=== PATIENT | female | born 1945 | race Caucasian/White ===

== ENCOUNTER 2017-03-22 09:22 | Day surgery (SDC) | payer BC ==
--- NOTE | ~2017-03-22 | EGD ---
EGD REPORT [facility] [address] [address] NAME: MANJEET BASURTO : [birth year] STATUS : REG [facility]#: [id number] AGE: 71 ADM/REG DATE : 03/22/17 MR#: [id number] REPORT SERV DATE: 03/22/17 DICTATED BY: MARCOS DANEIL DATE: 03/22/17 REPORT STATUS : Draft TRANSCRIBED BY: [facility] DATE: 03/22/17 Endoscopy Center Patient Name: Manjeet Basurto Date of : 1945 Attending MD: MARCOS DANIEL MD Procedure Date No Time: 03/22/2017 Procedure: Upper GI endoscopy Indications: Epigastric abdominal pain, Heartburn, Suspected esophageal reflux, Nausea with vomiting Referring MD: Elisa Gonzalez Medicines: as per anesthesia Complications: No immediate complications. Procedure: Pre-Anesthesia Assessment: - ASA Grade Assessment: II - A patient with mild systemic disease. After obtaining informed consent, the endoscope was passed under direct vision. Throughout the procedure, the patient's blood pressure, pulse, and oxygen saturations were monitored continuously. The GIF [id number] was introduced through the mouth, and advanced to the third part of duodenum. The upper GI endoscopy was accomplished without difficulty. The patient tolerated the procedure. Findings: The examined esophagus was normal. A small hiatus hernia was present. Localized mild inflammation characterized by erythema was found in the gastric antrum. Biopsies were taken with a cold forceps for histology. The examined duodenum was normal. Impression: - Normal esophagus. - Hiatus hernia. - Gastritis. Biopsied. - Normal examined duodenum. Recommendation: - Await pathology results. - Follow an antireflux regimen. - Continue present medications. Procedure Code(s): --- Professional --- 39066, Esophagogastroduodenoscopy, flexible, transoral; with biopsy, single or multiple Diagnosis Code(s): --- Professional --- EGD REPORT [facility] [address] [place]. [address] NAME: MANJEET BASURTO : [birth year] STATUS : REG [facility]#: [id number] AGE: 71 ADM/REG DATE : 03/22/17 MR#: [id number] REPORT SERV DATE: 03/22/17 DICTATED BY: MARCOS DANIEL DATE: 03/22/17 REPORT STATUS : Draft TRANSCRIBED BY: [employer] DATE: 03/22/17 K44.9, Diaphragmatic hernia without obstruction or gangrene K29.70, Gastritis, unspecified, without bleeding R10.13, Epigastric pain R12, Heartburn R11.2, Nausea with vomiting, unspecified CPT copyright 2013 [employer]. All rights reserved. The codes documented in this report are preliminary and upon plug sorter review may be revised to meet current compliance requirements. MARCOS DANIEL MD 03/22/2017 11:54 AM This report has been signed electronically. Number of Addenda: 0 Note Initiated On: 03/22/2017 11:29 AM Scope Withdrawal Time 0 hours 0 minutes 0 seconds [address] [place] [address]
[~2017-03-22 09:22] MED LIST: FERROUS SULF325 M1 PO; LOTENSIN HCT1 TA2 PO; SYN88 PO
== END 2017-03-22 23:59 | disposition home or self-care (01) ==
LOC: DMU 09:22
PROVIDERS: Internal Medicine Gastroenterology
PROC: 0DB68ZZ Excision of Stomach, Via Natural or Artificial Opening Endoscopic (ICD-10-PCS; principal; 2017-03-22 11:00)
DX: K31.89 Other diseases of stomach and duodenum (principal); K44.9 Diaphragmatic hernia without obstruction or gangrene; R10.13 Epigastric pain; K21.9 Gastro-esophageal reflux disease without esophagitis; I10 Essential (primary) hypertension; E78.00 Pure hypercholesterolemia, unspecified; E03.9 Hypothyroidism, unspecified; M10.9 Gout, unspecified; M19.90 Unspecified osteoarthritis, unspecified site; Z98.890 Other specified postprocedural states
CPT/HCPCS: 88305